=== PATIENT | female | born 1980 | race Caucasian/White ===

== ENCOUNTER 2016-06-22 09:55 | Emergency (ER) ==
[2016-06-22] MEDS ORDERED: ZOFRAN IV ONE (10:33)
[2016-06-22] MEDS ORDERED: MORPHINE IV ONE ×2 (10:33→13:12)
[2016-06-22] MEDS ORDERED: ZOFRAN ONE (10:34)
[2016-06-22] MEDS ORDERED: MORPHINE ONE (10:34)
--- NOTE | 2016-06-22 10:40 | PROVIDER DOCUMENTATION ---
HPI-Musculoskeletal Pain/Inj - GENERAL Source: patient - HX OF PRESENT ILLNESS-MUSKULOSKELTAL Quality of Pain: reports: sharp, stabbing Severity in ED: moderate Onset/Duration: abrupt, this morning Timing: still present, constant Modifying Factors: worse with: movement Any recent injury?: No Locality of Occurance: Home Similar Symptoms Previously?: No Recently seen or treated by another doctor?: No - BACK & NECK PAIN/INJURY Back/Neck Pain Location: reports: lumbar spine Context / Method of Injury: reports: other (popping). denies: direct blow, fall Associated Symptoms: reports: lower back pain. denies: loss of bladder control , loss of bowel control, fever History of Chronic Neck or Back Pain?: No <Tank Lentz - Last Filed: 06/22/16 14:34> <Jill Lopez - Last Filed: 06/22/16 15:22> - GENERAL Chief Complaint: Back Pain Stated Complaint: low back pain Time Seen by Provider: 06/22/16 10:20 - HX OF PRESENT ILLNESS-MUSKULOSKELTAL Nature of Presenting Problem: patient is a 36 yo F that presents to the ER with sudden lower back pain after getting up from toilet. She felt a pop and has decrease ROM to back. Denies loss of bowel or urine control. no history of back pain (Tank Lentz) Review of Systems - Adult - REVIEW OF SYSTEMS - ADULT Constitutional: denies: chills, fever Eyes: reports: no symptoms reported Ears, Nose, Mouth & Throat: reports: no symptoms reported Cardiovascular: denies: chest pain, orthopnea, palpitations, syncope Respiratory: denies: cough, shortness of breath, wheezing Gastrointestinal: denies: abdominal pain, diarrhea, nausea, vomiting Genitourinary: denies: dysuria, frequency, hematuria Musculoskeletal: reports: back pain. 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) Genitourinary: reports: kidney stones - PRIOR SURGERIES/PROCEDURES Surgical/Procedure History: reports: cholecystectomy - IMMUNIZATION STATUS Childhood Immunizations: See Nurse Assessment Flu Vaccine: See Nurse Assessment - FAMILY HISTORY Family History: kidney stones - SOCIAL HISTORY Smoking: non-smoker Living Situation: family <Tank Lentz - Last Filed: 06/22/16 14:34> Physical Exam-Injury Related - Physical Exam-Injury Related Initial Vital Signs Reviewed: Yes General Appearance: alert, mild distress, obese Eyes: PERRL/EOMI, pink conjunctivae Head, Ears, Nose, Mouth & Throat: normocephalic/atraumatic, moist mucous membranes, normal ENT inspection Neck: non-tender, full range of motion, normal inspection Respiratory: lungs clear, normal breath sounds, no respiratory distress, no accessory muscle use Cardiovascular: regular rate, rhythm, no edema, no JVD, no murmur Abdominal Exam: normal bowel sounds, non tender, soft, no organomegaly, no pulsatile mass Back Exam: decreased range of motion, vertebral tenderness (lower lumbar). negative: scoliosis Extremity: normal range of motion, normal inspection, no calf tenderness, normal capillary refill, pelvis stable Integumentary: normal color, warm/dry Neurologic: grossly normal, no motor/sensory deficits Psych/Mental Status: normal thought content, normal thought process, oriented x 3, anxious - Glascow Coma Score Best Eye Response ([place]): (4) open spontaneously Best Verbal Response ([place]): (5) oriented Best Motor Response ([place]): (6) obeys commands [place] Total: 15 <Tank Lentz - Last Filed: 06/22/16 14:34> Progress - XRAY 1 XRAY Study: Lumbar Spine Impression: Normal XRAY Interpretation: negative - CT/MRI 1 CT Study: Lumbar Spine Impression: Abnormal CT Results: small disc bulge at L5-S1, no stenosis or narrowing <Tank Lentz - Last Filed: 06/22/16 14:34> - REASSESSMENT Reassessment #1 Time Reassessed: 11:56 Status: unchanged (Pt is still in and could not urinate on a bed qureshi. MRI ordered.) Reassessment #2 Time Reassessed: 15:20 Status: unchanged (Pt still c/o LBP. Was able to urinate by herself and it showed UTI. Pt denies any abd pain and no cancerns for acute abd. Pt's MRI unremarkable. Both her nurse and myself repeatedly evaluated pt several times, except for sudden onset LBO, there is no other concerns.) <Jill Lopez X - Last Filed: 06/22/16 15:22> - PLAN OF CARE/RESULTS Progress/Plan/Lab Results: plan of care-xrays, meds 1134-MRI of lumbar spine ordered Vital Signs Temp Pulse Resp BP Pulse Ox 06/22/16 10:02 97.8 F 82 18 138/90 98 FLU VACCINE Allergy (Uncoded 06/22/16 10:08) Unknown Cyclobenzaprine [Flexeril] 10 mg PO HS #15 tablet 06/22/16 Hydrocodone/APAP 7.5 mg/325 mg [Cassandra-7.5] 1 each PO Q8H PRN PRN #10 tablet 02/28 Methylprednisolone [Medrol Dosepak] 4 mg PO DIRECTED #1 package 06/22/16 Naproxen [Naprosyn] 500 mg PO BID #20 tablet 06/22/16 Dietary Diet NPO Start WedJun 22 1156 Laboratory 06/22/16 06/22/16 06/22/16 13:35 13:35 13:00 WBC 11.34 H RBC 4.64 Hgb 13.6 Hct 40.0 MCV 86.2 MCH 29.3 MCHC 34.0 RDW Std Deviation 13.7 Plt Count 315 MPV 10.7 H Immature Gran % (Auto) 0.2 Neut % (Auto) 73.8 Lymph % (Auto) 19.5 L Jack % (Auto) 5.6 Eos % (Auto) 0.5 Baso % (Auto) 0.4 Immature Gran # (Auto) 0.02 Neut # (Auto) 8.38 H Lymph # (Auto) 2.21 Jack # (Auto) 0.63 H Eos # (Auto) 0.06 Baso # (Auto) 0.04 Sodium Potassium Chloride Carbon Dioxide Anion Gap BUN Creatinine Estimated GFR/1.73 m2 BUN/Creatinine Ratio Glucose Calculated Osmolality Calcium Total Bilirubin AST ALT Alkaline Phosphatase Total Protein Albumin Globulin Albumin/Globulin Ratio Amylase Lipase Urine Source CLEAN CATCH Urine Color YELLOW Urine Turbidity CLEAR Urine pH 5.0 Ur Specific [place] 1.011 Urine Protein NEGATIVE Ur Glucose (Stick) NEGATIVE Ur Ketones (Stick) NEGATIVE Urine Blood LARGE A Urine Nitrite POSITIVE A Urine Bilirubin NEGATIVE Urobilinogen Dipstick NORMAL Urine Leukocytes NEGATIVE Urine WBC (Auto) <10 Urine RBC (Auto) <10 U Epithel Cells (Auto) <10 Urine Bacteria (Auto) 4+ Urine Test NEGATIVE 06/22/16 13:00 WBC RBC Hgb Hct MCV MCH MCHC RDW Std Deviation Plt Count MPV Immature Gran % (Auto) Neut % (Auto) Lymph % (Auto) Jack % (Auto) Eos % (Auto) Baso % (Auto) Immature Gran # (Auto) Neut # (Auto) Lymph # (Auto) Jack # (Auto) Eos # (Auto) Baso # (Auto) Sodium 140 Potassium 4.0 Chloride 105 Carbon Dioxide 21 L Anion Gap 14 BUN 12 Creatinine 0.7 Estimated GFR/1.73 m2 > 60 BUN/Creatinine Ratio 17 Glucose 88 Calculated Osmolality 279 Calcium 8.9 Total Bilirubin 0.53 AST 25 ALT 32 Alkaline Phosphatase 65 Total Protein 7.4 Albumin 4.2 Globulin 3.2 Albumin/Globulin Ratio 1.3 Amylase 27 Lipase 21 Urine Source Urine Color Urine Turbidity Urine pH Ur Specific [place] Urine Protein Ur Glucose (Stick) Ur Ketones (Stick) Urine Blood Urine Nitrite Urine Bilirubin Urobilinogen Dipstick Urine Leukocytes Urine WBC (Auto) Urine RBC (Auto) U Epithel Cells (Auto) Urine Bacteria (Auto) Urine Test Orders Category Date Time Status Saline Loc DIRECTED Care 06/22/16 11:56 Active NPO Diet 06/22/16 11:56 Active LUMBAR SPINE [RAD] Stat Exams 06/22/16 10:26 Completed MRI LUMBAR SPINE W/O CONTRAST [MRI] Stat Exams 06/22/16 11:34 Completed AMYLASE [CHEM] Stat Lab 06/22/16 13:00 Completed CBC WITH ELECTRONIC DIFF [HEME] Stat Lab 06/22/16 13:00 Completed COMPREHENSIVE METABOLIC PANEL [CHEM] Stat Lab 06/22/16 13:00 Completed LIPASE [CHEM] Stat Lab 06/22/16 13:00 Completed TEST-URINE [PREG] Stat Lab 06/22/16 13:35 Completed URINALYSIS W/POSS RFLX CULT [URINALYSIS] Stat Lab 06/22/16 13:35 Completed 0.9% Sodium Chloride Inj [Ns] 1,000 ml Med 06/22/16 11:56 Discontinued IV 999 mls/hr CefTRIAXONE 1 GM/NS [Rocephin 1 gm/Ns] 50 ml Med 06/22/16 14:19 Active IV NOW Hydromorphone [Dilaudid] Med 06/22/16 11:56 Discontinued 1 mg IV NOW ONE Ketorolac [Toradol] Med 06/22/16 13:12 Discontinued 30 mg IV NOW ONE Morphine Med 06/22/16 10:34 Discontinued 4 mg .ROUTE .STK-MED ONE Morphine Med 06/22/16 10:33 Discontinued 4 mg IV NOW ONE Morphine Med 06/22/16 13:12 Discontinued 4 mg IV NOW ONE Ondansetron [Zofran] Med 06/22/16 10:34 Discontinued 4 mg .ROUTE .STK-MED ONE Ondansetron [Zofran] Med 06/22/16 10:33 Discontinued 4 mg IV NOW ONE patient will be d/c home with rx f/u with ortho or spine neuro,patient understood results and instructions. (Tank Lentz) Departure - Departure Time of Disposition Order: 14:34 Certified Medical Emergency: Emergent <Tank Lentz - Last Filed: 06/22/16 14:34> <Jill Lopez - Last Filed: 06/22/16 15:22> - Departure DIAGNOSIS: UTI (urinary tract infection) Qualifiers: Urinary tract infection type: acute cystitis Hematuria presence: with hematuria Qualified Code(s): N30.01 - Acute cystitis with hematuria Lumbar strain Qualifiers: Encounter type: initial encounter Qualified Code(s): S39.012A - Strain of muscle, fascia and tendon of lower back, initial encounter Disposition: HOME 01 Condition: Stable Additional Instructions: Follow up with Dr. Giselle OCONNELL for further management. Return to ER as needed. Prescriptions: Ciprofloxacin HCl [Cipro] 500 mg PO BID #20 tablet Cyclobenzaprine [Flexeril] 10 mg PO HS #15 tablet Methylprednisolone [Medrol Dosepak] 4 mg PO DIRECTED #1 package Naproxen [Naprosyn] 500 mg PO BID #20 tablet Hydrocodone/APAP 7.5 mg/325 mg [Cassandra-7.5] 1 each PO Q8H PRN PRN #10 tablet PRN Reason: Pain Referrals: None,PCP [Primary Care Provider] - Sneha Desai MD [STAFF PHYSICIAN] - Call for Appoint. 1-2days Suleman Connolly [NON-STAFF] - Call for Appoint. 1-2days Forms: Return to School/Parent Work Instructions: Urinary Tract Infection, [id number], Lumbosacral Strain Attestation - Scribe Verification/Attestation Scribe:: Tank Lentz Acting as Scribe for:: Jill Lopez Scribe documention review:: This chart was documented by a scribe and accurately reflects the service the provider performed and the decisions made by the provider. <Tank Lentz - Last Filed: 06/22/16 14:34> Physician Attestation - Physician Attestation I, the provider, attest to the following statement:: Jill Lopez Physician documentation Attestation:: This documentation recorded by the scribe accurately reflects the service I personally performed and the decisions made by me. <Tank Lentz - Last Filed: 06/22/16 14:34>
[2016-06-22] MEDS ORDERED: DILAUDID IV ONE (11:56)
[2016-06-22] MEDS ORDERED: NS 1,000 ML IV ONE (11:56)
--- NOTE | 2016-06-22 12:01 | Diag Imaging Result Document ---
PROCEDURE NAME: LUMBAR SPINE - 06/22/2016 LUMBAR SPINE SERIES WITH OBLIQUES, 6 VIEWS: FINDINGS: The pedicles are intact. The disk spaces are well maintained. There is no evidence of fracture or subluxation. IMPRESSION: No evidence of acute disease.
[2016-06-22 13:11] LABS: MANUAL DIFF NEEDED? NO
[2016-06-22] MEDS ORDERED: TORADOL IV ONE (13:12)
[2016-06-22 13:17] LABS: BASO% 0.4 % (0.0-0.8); EOS# 0.06 X1000 (0.0-0.7); EOS% 0.5 % (0.0-10.0); HEMOGLOBIN 13.6 g/dL (12.0-16.0); IMM GRAN# 0.02 X1000 (0.0-0.04); IMM GRAN% 0.2 % (0.0-0.5); LYMPH# 2.21 X1000 (1.2-3.4); LYMPH% 19.5 % (20.5-51.1); MCH 29.3 PG (27-31); MCV 86.2 FL (81-99); MONO# 0.63 X1000 (0.11-0.59); MONO% 5.6 % (1.7-9.3); MPV 10.7 FL (7.4-10.4); NEUT% 73.8 % (42.2-75.2); PLT 315 X1000 (130-400); RBC 4.64 XMIL (4.2-5.4)
[2016-06-22 13:29] LABS: AGAP 14; ALBUMIN 4.2 g/dL (3.5-5.0); ALKALINE PHOSPHATASE 65 U/L (32-104); AMYLASE 27 U/L (20-200); BUN 12 mg/dL (8-22); CALCIUM 8.9 mg/dL (8.8-10.2); CHLORIDE 105 mmol/L (98-107); COSMO 279; GOT 25 U/L (10-30); GPT 32 U/L (10-36); LIPASE 21 U/L (13-60); SODIUM 140 mmol/L (136-145); TCO2 21 mmol/L (25-35); TOTAL BILIRUBIN 0.53 mg/dL (0.20-1.00); TOTAL PROTEIN 7.4 g/dL (6.3-8.3)
[2016-06-22 13:49] LABS: URINE MICRO REVIEW NEEDED? NO; URINE SOURCE CLEAN CATCH
[2016-06-22 13:56] LABS: BILIRUBIN URINE NEGATIVE (NEGATIVE); BLOOD URINE LARGE (NEGATIVE); COLOR YELLOW; GLUCOSE URINE NEGATIVE (NEGATIVE); LEUKOCYTES URINE NEGATIVE (NEGATIVE); NITRITE URINE POSITIVE (NEGATIVE); PROTEIN URINE NEGATIVE (NEGATIVE); SP GRAVITY URINE 1.011; TURBIDITY URINE CLEAR (CLEAR); UROBILINOGEN URINE NORMAL (NORMAL)
[2016-06-22 13:57] LABS: UR EPITHELIAL CELLS <10 /HPF (<10); URINE BACTERIA 4+ /HPF; URINE CULTURE NEEDED? YES; URINE RBC <10 /HPF (<10); URINE WBC <10 /HPF (<10)
--- NOTE | 2016-06-22 14:01 | Diag Imaging Result Document ---
PROCEDURE NAME: MRI LUMBAR SPINE W/O CONTRAST - 06/22/2016 MRI OF THE LUMBAR SPINE WITHOUT: TECHNIQUE: Axial and sagittal images were obtained in multiple sequences. FINDINGS: There is good alignment to the lumbar spine. No compressed vertebra. No subluxation. No bone spurring. The conus is at T12-L1. Normal discs at the following levels: T12-L1, L1-2, L2-3, L3-4, and L4-5. No spinal stenosis at these levels. No neural foraminal narrowing. L5-S1: There is a small central disc bulge. No spinal stenosis. Mild left neural foraminal narrowing. No disc fragment. There is loss of the normal water content to the L5-S1 disc. IMPRESSION: Small central disc bulge at L5-S1 but no spinal stenosis or significant neural foraminal narrowing. A preliminary report was given at 12:56 p.m..
[2016-06-22] MEDS ORDERED: ROCEPHIN 1 GM/NS 50 ML IV ONE (14:19)
[2016-06-22 16:15] VITALS: BP 122/73
== END 2016-06-22 16:10 | disposition home or self-care (01) ==
LOC: EDBD → ED 09:55
DX: S39.012A Strain of muscle, fascia and tendon of lower back, initial encounter (principal); N30.01 Acute cystitis with hematuria; M51.87 Other intervertebral disc disorders, lumbosacral region; M54.5 Low back pain; E66.9 Obesity, unspecified; Z87.442 Personal history of urinary calculi; X58.XXXA Exposure to other specified factors, initial encounter
CPT/HCPCS: 72110; 72148; 80053; 81001; 81025; 82150; 83690; 85025; 87077; 87088; 87186; 96361; 96365; 96375; 96376; J0696; J1170; J1885; J2270; J2405; J7030